=== PATIENT | female | born 1975 | race Caucasian/White ===

== ENCOUNTER 2019-04-22 07:04 | Day surgery (SDC) | payer OTHER ==
[~2019-04-22] VITALS: Ht 162.6 cm; Wt 67.1 kg
[2019-04-22 08:09] VITALS: BP 116/78
[2019-04-22 13:59] VITALS: BP 112/76
--- NOTE | 2019-04-26 17:00 | NUR ---
TC TO PT FOLLOWUP S/P COLONOSCOPY. PT REPORTS "OK WHEN I WENT HOME. THURSDAY NIGHT I STARTED TO HAVE A FEVER 100.7 AND STOMACH STOMACH PAIN 10/10. UNABLE TO REACH DR ZUÑIGA AFTER 2 CALLS. I DID NOT WANT TO GO TO THE ER ON 04-22-19. AN ER NURSE FRIEND GAVE LORTAB. I TOOK 1/2 ONE ON THURSDAY NIGHT AND THE OTHER 1/2 ON THURSDAY MORNING. THURSDAY THE PAIN STILL 10/10. THURSDAY PAIN 7/10. I CALLED DR ZUÑIGA ON 04-25-19 AND 04-26-19. MESSAGE LEFT. DID NOT GET A CALL BACK FROM THE OFFICE. I STARTED TO HAVE BLOOD IN MY STOOL ON 04-25-19. TODAY MY PAIN IS ABOUT 3/10, BETTER." REVIEWED DISCHARGE INSTRUCTIONS WITH PT. ENCOURAGED TO GO THE ER IF HER SYMPTOMS BECOME WORSE. VERBALIZED UNDERSTANDING. ATTEMPT TO CALL DR ZUÑIGA'S OFFICE, CLOSED. WILL CALL FOR PT ON 04-27-19. PT VERBALIZED UNDERSTANDING.
--- NOTE | 2019-04-27 10:00 | NUR ---
TC TO DR ZUÑIGA'S OFFICE, SPOKE WITH ARTIE. UPDATED WITH PT STATUS. APPOINTMENT MADE FOR Thursday04-28-19 4:15PM. CALLED AND UPDATED WITH APPOINTMENT DATE AND TIME. VERBALIZED UNDERSTANDING. STATES TODAY "STILL HAS A FEELING OF FULLNESS IN MY STOMACH, NO PAIN." REINFORCED DISCHARGE INSTRUCTIONS. VERBALIZED UNDERSTANDING.
== END 2019-04-22 11:30 | disposition home or self-care (01) ==
LOC: GI 07:04 → OR 10:30 → GI 10:30
DX: D12.0 Benign neoplasm of cecum (principal); D37.4 Neoplasm of uncertain behavior of colon; K64.4 Residual hemorrhoidal skin tags; K57.30 Diverticulosis of large intestine without perforation or abscess without bleeding; F17.210 Nicotine dependence, cigarettes, uncomplicated; F12.90 Cannabis use, unspecified, uncomplicated; F41.9 Anxiety disorder, unspecified; Z79.899 Other long term (current) drug therapy; Z98.51 Tubal ligation status; Z98.890 Other specified postprocedural states; Z97.3 Presence of spectacles and contact lenses
CPT/HCPCS: 45378; 99153; J1200; J1610; J2250; J2310; J3010; J3490